=== PATIENT | female | born 1990 | race Caucasian/White ===

== ENCOUNTER 2022-05-16 15:59 | Emergency (ER) | payer OTHER ==
[2022-05-16 16:09] VITALS: BP 166/99; PULSE 80; RESP 18; TEMP 97
== END 2022-05-16 18:47 | disposition home or self-care (01) ==
LOC: JERFT 15:59
DX: S42.402A Unspecified fracture of lower end of left humerus, initial encounter for closed fracture (principal); W00.0XXA Fall on same level due to ice and snow, initial encounter
CPT/HCPCS: 73060-TC-LT-FY; 73070-TC-LT-FY; 73110-TC-LT-FY; 99285-25

== ENCOUNTER 2022-07-09 15:43 | Emergency (ER) | payer OTHER ==
[2022-07-09 15:51] VITALS: BP 133/81; PULSE 89; RESP 16; TEMP 98.2; BMI 34.2
[2022-07-09] MEDS ORDERED: LIDOCAINE 5% TOPICAL PATCH TP ONE (16:39)
[2022-07-09] MEDS ORDERED: LIDOCAINE 5% TOPICAL PATCH ONE (17:15)
[2022-07-09 18:27] LABS: EPI CELLS 23 /uL (0-25.1); HYALINE CASTS 0 /uL (0-3.1); URINE APPEARANCE CLEAR; URINE BACTERIA 4422 /uL (0-1359); URINE BILIRUBIN NEGATIVE (NEGATIVE); URINE COLOR YELLOW; URINE GLUCOSE (UA) NEGATIVE (NEGATIVE); URINE KETONE NEGATIVE (NEGATIVE); URINE LEUK ESTERASE TRACE (NEGATIVE); URINE NITRITE POSITIVE (NEGATIVE); URINE PROTEIN NEGATIVE (NEGATIVE); URINE RBC 10 /uL (0-23.9); URINE UROBILINOGEN 0.2 mg/dL (0.2-1.0); URINE WBC 38 /uL (0-25.8)
[2022-07-09 18:29] LABS: HCG,QUALITATIVE URINE Negative
[2022-07-09] MEDS ORDERED: LIDOCAINE PATCH REMOVAL MC SCH (22:00)
== END 2022-07-09 19:48 | disposition home or self-care (01) ==
LOC: JER 15:43 → JERFT 15:43 → JER 19:48
DX: M54.50 Low back pain, unspecified (principal)
CPT/HCPCS: 72110-TC-FY; 81003; 84703; 99284-25